=== PATIENT | male | born 1945 | race Caucasian/White ===

== ENCOUNTER 2016-03-27 11:52 | Emergency (ER) | payer MEDICARE ==
[2016-03-27 13:13] LABS: BASOPHILS 0.4 % (0.0-2.0); EOSINOPHILS 4.7 % (0-7); HEMATOCRIT 43.5 % (42.0-54.0); HEMOGLOBIN 15.2 g/dL (13.5-17.5); IMMATURE GRANULOCYTES 1.1 % (0-5); LYMPHOCYTES 24.4 % (15-50); MCHC 34.9 g/dL (31.0-37.0); MCV 88.6 fL (80.0-100.0); MEAN PLATELET VOLUME 9.5 fL (7.4-10.4); MONOCYTES 5.7 % (2-11); NEUTROPHILS 63.7 % (40-80); RBC 4.91 10x6/uL (4.20-6.10); RDW 13.5 % (11.5-14.5); WBC 13.6 10x3/uL (4.8-10.8)
[2016-03-27 13:30] LABS: PLATELET COUNT 100 10x3/uL (130-400)
[2016-03-27 13:33] LABS: ALBUMIN 3.6 g/dL (3.4-5.0); ALKALINE PHOSPHATASE 92 U/L (46-116); ALT (SGPT) 30 U/L (10-68); BILIRUBIN - TOTAL 0.25 mg/dL (0.2-1.3); CALC OSMOLALITY 271 mosm/kg (275-300); CALCIUM 9.6 mg/dL (8.5-10.1); CARBON DIOXIDE 27.4 mmol/L (21.0-32.0); CHLORIDE - SERUM 101 mmol/L (98-107); GLUCOSE 100 mg/dL (74-106); POTASSIUM - SERUM 4.4 mmol/L (3.5-5.1); PROTEIN - SERUM 6.9 g/dL (6.4-8.2); SODIUM 135 mmol/L (136-145); UREA NITROGEN 17 mg/dL (7-18); eGFR NON AFRICAN AMERICAN 78 mL/min (90-120)
[2016-03-27 15:40] LABS: ERYTHROCYTE SEDIMENTATION RATE 2 mm/hr (0-20)
[2016-04-05 12:29] VITALS: BMI 32.8
== END 2016-03-27 14:00 | disposition home or self-care (01) ==
LOC: D.ER 11:52
PROVIDERS: Physician Assistant Medical
DX: H54.61 Unqualified visual loss, right eye, normal vision left eye (principal); I10 Essential (primary) hypertension; J44.9 Chronic obstructive pulmonary disease, unspecified; F17.200 Nicotine dependence, unspecified, uncomplicated

== ENCOUNTER 2016-03-31 10:53 | Emergency (ER) | payer MEDICARE ==
[2016-03-31] MEDS ORDERED: ALTACE10 MG PO (23:41)
[2016-03-31] MEDS ORDERED: LISINOPRIL-HCTZ1 TA2 PO (23:42)
[2016-03-31] MEDS ORDERED: LIPITOR40 MG PO (23:42)
[2016-03-31] MEDS ORDERED: CHILDREN'S ASPI81 MG PO (23:43)
[2016-04-05 12:29] VITALS: BMI 32.8
== END 2016-03-31 12:25 | disposition home or self-care (01) ==
LOC: D.ER 10:53
DX: R42 Dizziness and giddiness (principal); Z98.890 Other specified postprocedural states; R09.89 Other specified symptoms and signs involving the circulatory and respiratory systems; J44.9 Chronic obstructive pulmonary disease, unspecified; I10 Essential (primary) hypertension; H54.61 Unqualified visual loss, right eye, normal vision left eye; F17.200 Nicotine dependence, unspecified, uncomplicated

== ENCOUNTER 2016-03-31 17:01 | Inpatient (IN) | payer MEDICARE ==
[~2016-03-31] VITALS: Ht 182.9 cm; Wt 108.7 kg
[2016-03-31] MEDS ORDERED: ALTACE10 MG PO (23:41)
[2016-03-31] MEDS ORDERED: LIPITOR40 MG PO (23:42)
[2016-03-31] MEDS ORDERED: LISINOPRIL-HCTZ1 TA2 PO (23:42)
[2016-03-31] MEDS ORDERED: CHILDREN'S ASPI81 MG PO (23:43)
[2016-04-01] VITALS (7 sets, daily range): BP systolic 137–172; BP diastolic 38–84; BMI 31.2
--- NOTE | 2016-04-01 07:25 | NUR ---
PATIENT LAYING ON HIS RIGHT SIDE. HOME BIPAP ON. PATIENT DOES NOT APPEAR TO BE IN DISTRESS AT THIS TIME. BED IN LOWEST POSITION, CALL LIGHT IN REACH. BED RAILS UP X'S 2.
--- NOTE | 2016-04-01 07:30 | NUR ---
SPOKE WITH PATIENT'S SHE STATED "ON MAR 27, LAST MONDAY, HE LOST HIS VISION IN HIS RIGHT EYE. THE WEEK BEFORE THAT THE VISION IN HIS RIGHT EYE WAS HALF WAY GONE BUT CLEARED UP WITHIN MINUTES. WE MOVED HERE FROM [place] 2 YEARS AGO AND HE HAS HAD FREQUENT SINUS INFECTIONS SINCE, THE PAST 2 WEEKS IT HAS BEEN REALLY BAD. BUT NO HEADACHES. YESTERDAY HE STARTED FEELING LIGHT HEADED AND NAUSEOUS. WE WENT TO THE ER THEY TOLD US TO GO TO THE CLINIC TO GET AN ULTRASOUND OF HIS CAROTIDS. WE WENT TO THE CLINIC, THEY DID THE ULTRASOUND THEY SAID THE MACHINE MAXES OUT AT 500, AND ULTRASOUND ON THE RIGHT CAROTID MAXED OUT THE MACHINE. THE LEFT SIDE WAS 350/500. 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 HE ALSO HAS SLEEP APNEA AND WEARS A BIPAP AT NIGHT."
--- NOTE | 2016-04-01 11:37 | NUR ---
PATIENT GOING FOR CTA. 22G IV. TRIED TO START IV TO RIGHT FOREARM 20 X'S 1 ATTEMPT, UNSUCCESSFUL. ASKED ANOTHER NURSE.
--- NOTE | 2016-04-01 11:45 | NUR ---
ELFEGO MACKENZIE STARTED IV TO LEFT FOREARM 20G X'S 1 ATTEMPT.
[2016-04-01 14:09] LABS: ANION GAP 14.7 mmol/L (8-16); CALCIUM 9.5 mg/dL (8.5-10.1); CARBON DIOXIDE 26.5 mmol/L (21.0-32.0); CREATININE - SERUM 1.1 mg/dL (0.6-1.3); POTASSIUM - SERUM 4.2 mmol/L (3.5-5.1)
[2016-04-01 14:42] LABS: BASOPHILS 0.3 % (0.0-2.0); EOSINOPHILS 3.7 % (0-7); HEMATOCRIT 46.9 % (42.0-54.0); HEMOGLOBIN 15.6 g/dL (13.5-17.5); IMMATURE GRANULOCYTES 0.8 % (0-5); LYMPHOCYTES 20.1 % (15-50); MCH 29.9 pg (26.0-34.0); MCHC 33.3 g/dL (31.0-37.0); MEAN PLATELET VOLUME 9.2 fL (7.4-10.4); MONOCYTES 5.9 % (2-11); NEUTROPHILS 69.2 % (40-80); RBC 5.21 10x6/uL (4.20-6.10); RDW 13.9 % (11.5-14.5); WBC 15.8 10x3/uL (4.8-10.8)
[2016-04-01 14:44] LABS: PLATELET COUNT 232 10x3/uL (130-400)
[2016-04-01 14:46] LABS: APTT 31.8 SECONDS (22.8-39.4)
[2016-04-01 14:52] LABS: ALBUMIN 3.5 g/dL (3.4-5.0); BILIRUBIN - TOTAL 0.36 mg/dL (0.2-1.3); PROTEIN - SERUM 6.7 g/dL (6.4-8.2)
[2016-04-01 16:14] LABS: APPEARANCE CLEAR (CLEAR); COLOR YELLOW (YELLOW)
[2016-04-01 16:15] LABS: BILIRUBIN NEGATIVE (NEGATIVE); GLUCOSE NEGATIVE (NEGATIVE); KETONE NEGATIVE (NEGATIVE); LEUKOCYTE ESTERASE NEGATIVE (NEGATIVE); NITRITE NEGATIVE (NEGATIVE); PROTEIN NEGATIVE (NEGATIVE); UROBILINOGEN NORMAL (NORMAL)
--- NOTE | 2016-04-01 17:18 | NUR ---
PATIENT BACK FROM PULMONARY FUNCTION TESTS.
[2016-04-02] VITALS: BP 134/68
--- NOTE | 2016-04-02 03:37 | NUR ---
PT IS ASLEEP WITH EASY RESPIRATIONS AND NO DISTRESS NOTED. THE BED IS LOW, RAILS UP X'S 2 WITH THE CALL LIGHT AT HAND.
[2016-04-02 04:00] VITALS: BP 139/54
--- NOTE | 2016-04-02 07:00 | NUR ---
PT REC'D FROM ELFEGO ACEVEDO. RESTING IN BED ON LT SIDE WITH CPAP ON AND EYES CLOSED. RESP EVEN AND UNLABORED. BED LOW, CALL LIGHT IN REACH, WILL CPOC.
[2016-04-02 08:10] VITALS: BP 133/59
--- NOTE | 2016-04-02 09:55 | NUR ---
MORNING MEDS PASSED. PT HAS VISITOR IN ROOM AT THIS TIME. UPDATED ON PLAN AND VITAL SIGNS. NO COMPLAINTS OF PAIN. NO NEUROLOGICAL DEFICITS NOTED. PT STATES VISION IS CLEAR AND DOESNT HAVE ANY PROBLEMS FOCUSING. PERRLA. BED LOW, CALL LIGHT IN REACH, WILL CPOC.
[2016-04-02 12:00] VITALS: BP 100/69
--- NOTE | 2016-04-02 13:06 | NUR ---
AWAKE AND ALERT. UP IN CHAIR AT BEDSIDE. NO C/O AT THIS TIME. DENIES PAIN. NO NEEDS NOTED. REPORTS LEFT CAROTIDENDARECTOMY ON MONDAY.
--- NOTE | 2016-04-02 15:29 | NUR ---
SCHEDULED LOVENOX ADMINISTERED AT THIS TIME TO RLQ. BETTY SPARROW, IN ROOM TAKING VS. PT RESTING IN BED WITH CPAP ON. NO COMPLAINTS OF PAIN. BED LOW, CALL LIGHT IN REACH, WILL CPOC.
[2016-04-02 15:37] VITALS: BP 144/63
--- NOTE | 2016-04-02 19:20 | NUR ---
PT UP IN CHAIR, ASSESSMENT COMPLETED, DENIES PAIN OR NEEDS, NO DISTRESS NOTED, CL IN REACH, WILL MONITOR
[2016-04-02 20:43] VITALS: BP 170/72
--- NOTE | 2016-04-02 20:46 | NUR ---
MEDS GIVEN PER MAR, ROXANNE WELL, DENIES NEEDS, CL IN REACH
--- NOTE | 2016-04-02 23:09 | NUR ---
RESTING WITH EYES CLOSED, CPAP IN PLACE, NO DISTRESS NOTED, CL IN REACH
--- NOTE | 2016-04-03 01:49 | NUR ---
LOVENOX GIVEN PER MAR, ROXANNE WELL, DENIES NEEDS, CL IN REACH
--- NOTE | 2016-04-03 05:29 | NUR ---
FLUIDS HUNG PER MAR, DENIES PAIN OR NEEDS, CL IN REACH
--- NOTE | 2016-04-03 07:00 | NUR ---
PT REC'D FROM ELFEGO DEUTSCH. RESTING IN BED WITH CPAP ON. RESP EVEN AND UNLABORED. NO SIGNS OF DISTRESS. BED LOW, CALL LIGHT IN REACH, WILL CPOC.
[2016-04-03 08:04] VITALS: BP 138/49
--- NOTE | 2016-04-03 09:35 | NUR ---
MORNING MEDS PASSED AT THIS TIME. EXPLAINED TO PT WHY HE HAD BEEN PUT ON MUCINEX THE NEW NOSE SPRAY. PT HAS NO QUESTIONS OR CONCERNS AT THIS TIME. BED LOW, CALL LIGHT IN REACH, WILL CPOC.
[2016-04-03 11:56] VITALS: BP 148/64
--- NOTE | 2016-04-03 12:40 | NUR ---
PATIENT SITTING UP ON SIDE OF BED ALERT. NO SIGNS OF DISTRESS NOTED. CALL LIGHT IN REACH. BED IN LOW POSITION.
--- NOTE | 2016-04-03 13:35 | NUR ---
SPOKE WITH PT AND PT ABOUT DR. VELOZ'S ORDERS FOR SURGERY TOMORROW. IV TO L FOREARM DC'D WITH CATHETER INTACT. DRESSING APPLIED. INSTRUCTED PT ON HOW TO USE ICENTIVE SPIROMETER AND HOW OFTEN TO. PT ABLE TO RETURN DEMONSTRATION 5 TIMES. BED LOW, CALL LIGHT IN REACH, WILL CPOC.
[2016-04-03 15:59] VITALS: BP 161/60
--- NOTE | 2016-04-03 18:48 | NUR ---
PT UNHOOKED FROM IV TUBING TO TAKE A SHOWER. IV SITE COVERED WITH GLOVE AND SECURED WITH TAPE.
[2016-04-03 19:00] VITALS: BP 155/57
--- NOTE | 2016-04-03 19:25 | NUR ---
ASSESSMENT COMPLETED, NO ACUTE DISTRESS NOTED, DENIES PAIN OR NEEDS, SR'S UP X2, CL IN REACH, WILL MONITOR
--- NOTE | 2016-04-03 21:08 | NUR ---
MEDS GIVEN PER MAR, ROXANNE WELL, DENIES NEED, SR'S UP, CL IN REACH
[2016-04-04] VITALS (17 sets, daily range): BP systolic 126–143; BP diastolic 43–58
--- NOTE | 2016-04-04 01:33 | NUR ---
RESTING WITH EYES CLOSED, NO DISTRESS NOTED, CL IN REACH
[2016-04-04 05:24] LABS: HEMATOCRIT 43.2 % (42.0-54.0); HEMOGLOBIN 14.5 g/dL (13.5-17.5); MCH 29.7 pg (26.0-34.0); MCHC 33.6 g/dL (31.0-37.0); MCV 88.3 fL (80.0-100.0); PLATELET COUNT 227 10x3/uL (130-400); RBC 4.89 10x6/uL (4.20-6.10); RDW 13.7 % (11.5-14.5); WBC 23.5 10x3/uL (4.8-10.8)
[2016-04-04 05:40] LABS: APTT 30.9 SECONDS (22.8-39.4); INR 1.03 (0.85-1.17); PROTIME 13.3 SECONDS (11.6-15.0)
[2016-04-04 05:45] LABS: EOSINOPHILS 1 % (0-7); LYMPHOCYTES 8 % (15-50); MONOCYTES 5 % (2-11); NEUTROPHILS 83 % (40-80); PLATELET ESTIMATE NORMAL
[2016-04-04 05:58] LABS: ALBUMIN 3.3 g/dL (3.4-5.0); ANION GAP 15.3 mmol/L (8-16); BILIRUBIN - TOTAL 0.28 mg/dL (0.2-1.3); CARBON DIOXIDE 23.8 mmol/L (21.0-32.0); CREATININE - SERUM 1.1 mg/dL (0.6-1.3); MAGNESIUM - SERUM 2.2 mg/dL (1.8-2.4); PHOSPHOROUS 2.7 mg/dL (2.5-4.9); POTASSIUM - SERUM 5.1 mmol/L (3.5-5.1); PROTEIN - SERUM 6.4 g/dL (6.4-8.2)
--- NOTE | 2016-04-04 08:00 | NUR ---
PT AWAKE AND ALERT NO ACUTE DISTRESS NOTED HIBICLENSE BATH GIVEN PER STAFF ASSIST EARLIER. NPO FOR OR WITH DR VELOZ THIS AM.
--- NOTE | 2016-04-04 09:00 | NUR ---
WITHOUT DISTRESS.NPO FOR SURGERY.CALL LIGHT IN REACH
--- NOTE | 2016-04-04 11:33 | NUR ---
TO OR VIA BED FOR CAROTID ENDARTERECTMY PER DR VELOZ. WAS PREOPPED PER ORDER PRIOR TO [facility]ORT HAS BEEN NPO SINCE MIDNIGHT. FAMILY AT SIDE.
--- NOTE | 2016-04-04 16:27 | NUR ---
RECIEVED PT TO ROOM FROM OR. ATTACHED TO ICU MONITORS. ASSESSMENT COMPLETE PER FLOWSHEET. WILL ASSESS FOR CHANGES THROUGHOUT SHIFT.
--- NOTE | 2016-04-04 18:00 | NUR ---
AT BEDSIDE. UPDATE PROVIDED.
--- NOTE | 2016-04-04 19:10 | NUR ---
ASSESSMENT COMPLETED. ALERT AND ORIENTED. O2 @ 4L VIA NC, MICHELL LUNGS DIMINISHED IN THE BASES. LT DLSC, DRSG C-D-I WITH IVF PER FLOW SHEET. RT NECK DRSG C-D-I, RT CHEST ANTONINA DRAIN WITH BLOODY DRAINAGE IN BAG AND BULB DEPRESSED. RT RADIAL A-LINE, ZEROED AND CALIBRATED WITH GOOD WAVE FORM. CRITICORE THOMPSON INTACT. MICHELL ALFA/SCD INTACT. PPP. SR ON THE MONITOR. DENIES ANY PAIN OR NEEDS AT THIS TIME.
--- NOTE | 2016-04-04 21:00 | NUR ---
AT BESIDE. UPDATE GIVEN. WILL CONT TO MONITOR. PULLING 3000 ON I/S.
--- NOTE | 2016-04-04 23:00 | NUR ---
REASSESSMENT COMPLETED. DENIES ANY NEEDS AT THIS TIME. PLACED ON HOME CPAP. WILL CONT TO MONITOR.
[2016-04-05] VITALS (24 sets, daily range): BP systolic 105–138; BP diastolic 48–87; Ht 182.9 cm; Wt 108.7 kg
--- NOTE | 2016-04-05 01:00 | NUR ---
EYES CLOSED, RESP EVEN AND UNLABORED. SR ON THE MONITOR.
--- NOTE | 2016-04-05 03:00 | NUR ---
EASILY AROUSED BY VERBAL STIMULI. DENIES ANY NEEDS AT THIS TIME. SR ON THE MONITOR.
--- NOTE | 2016-04-05 05:11 | NUR ---
NO CHANGES AT THIS TIME. WILL CONT TO MONITOR.
[2016-04-05 06:35] LABS: BASOPHILS 0.1 % (0.0-2.0); EOSINOPHILS 0 % (0-7); HEMATOCRIT 41.4 % (42.0-54.0); HEMOGLOBIN 13.8 g/dL (13.5-17.5); IMMATURE GRANULOCYTES 0.9 % (0-5); LYMPHOCYTES 9.9 % (15-50); MCHC 33.3 g/dL (31.0-37.0); MEAN PLATELET VOLUME 9.3 fL (7.4-10.4); MONOCYTES 9.9 % (2-11); NEUTROPHILS 79.2 % (40-80); PLATELET COUNT 253 10x3/uL (130-400); RDW 14.1 % (11.5-14.5); WBC 23.6 10x3/uL (4.8-10.8)
[2016-04-05 06:53] LABS: ANION GAP 16.9 mmol/L (8-16); CALCIUM 7.6 mg/dL (8.5-10.1); CARBON DIOXIDE 21.2 mmol/L (21.0-32.0); CREATININE - SERUM 1.2 mg/dL (0.6-1.3)
[2016-04-05 06:55] LABS: POTASSIUM - SERUM 4.1 mmol/L (3.5-5.1)
--- NOTE | 2016-04-05 07:00 | NUR ---
ASSESSMENT PER FLOWSHEET. VOICES NO CO AT TIME. ON CPAP.
[2016-04-05 09:18] LABS: IMMUNOGLOBULIN E 203 IU/mL (0-100)
--- NOTE | 2016-04-05 10:00 | NUR ---
DONNA WU. VOICES NO CO AT TIME.
--- NOTE | 2016-04-05 13:00 | NUR ---
UP IN CHAIR NO CO AT TIME. O2 SAT 97 PERCENT.
--- NOTE | 2016-04-05 13:00 | NUR ---
LINES SL. UP AMBULATING WITH PHYSICAL THERAPY. WALKED 700FT.
--- NOTE | 2016-04-05 13:54 | NUR ---
Is the patient Alert and Oriented? Yes 0 * How many steps to enter\exit or inside your home? 1 0 * PCP DR. NICHOLS 0 * Pharmacy [facility] IN [facility] 0 * Preadmission Environment Home with Family 0 * ADLs Independent 0 * Equipment CPAP 0 * Other Equipment CPAP PROVIDED BY [facility] [employer] 0 * List name and contact numbers for known caregivers / representatives who currently or will assist patient after discharge: SPOUSE: GENESIS [phone] * Community resources currently utilized None 0 * Additional services required to return to the preadmission environment? No 0 * Can the patient safely return to the preadmission environment? Yes 0 * Has this patient been hospitalized within the prior 30 days at any hospital? No PATIENT STATES HE LIVES AT HOME WITH HIS , GENESIS. SHE STATES THAT HIS PCP IS DR. NICHOLS. HE GETS HIS MEDSFROM [facility] AT THE [facility]. HE HAS CPAP THAT IS PROVIDED BY [employer]. HE DENIES EVER HAVING HOME HEALTH. PATIENT STATES THERE IS 1 STEP TO ENTER HIS HOME. PATIENT'S WILL BE AVAILABLE TO DRIVE HIM HOME AT DISCHARGE. NO DISCHARGE NEEDS IDENTIFIED.
--- NOTE | 2016-04-05 15:00 | NUR ---
SITTING UP IN CHAIR VOICES NO CO AT TIME.
--- NOTE | 2016-04-05 17:00 | NUR ---
EATING SUPPER VOICES NO CO AT TIME.
--- NOTE | 2016-04-05 19:10 | NUR ---
ASSESSMENT COMPLETED. SEE FLOW SHEET. LT DLSC SL, DRSG C-D-I, RT NECK DRSG C-D-I. RT CHEST ANTONINA DRAIN WITH BULB DEPRESSED. MICHELL ALFA/SCD INTACT. SR ON THE MONITOR. DENIES ANY PAIN OR NEEDS AT THIS TIME. I/S = 3000.
--- NOTE | 2016-04-05 21:00 | NUR ---
NO VISITOR'S AT THIS TIME. WILL CONT TO MONITOR.
--- NOTE | 2016-04-05 23:00 | NUR ---
REASSESSMENT COMPLETED. HOME CPAP IN USE. SR ON THE MONITOR.
[2016-04-06] VITALS (15 sets, daily range): BP systolic 121–158; BP diastolic 58–74
--- NOTE | 2016-04-06 01:00 | NUR ---
EYES CLOSED, RESP EVEN AND UNLABORED. SR ON THE MONITOR.
--- NOTE | 2016-04-06 03:00 | NUR ---
REASSESSMENT COMPLETED. WILL CONT TO MONITOR.
--- NOTE | 2016-04-06 05:00 | NUR ---
NO CHANGES AT THIS TIME. SR ON THE MONITOR.
[2016-04-06 05:34] LABS: BASOPHILS 0.2 % (0.0-2.0); EOSINOPHILS 0.2 % (0-7); HEMATOCRIT 40.6 % (42.0-54.0); HEMOGLOBIN 13.2 g/dL (13.5-17.5); IMMATURE GRANULOCYTES 0.7 % (0-5); LYMPHOCYTES 15.5 % (15-50); MCH 29.1 pg (26.0-34.0); MCHC 32.5 g/dL (31.0-37.0); MCV 89.6 fL (80.0-100.0); MEAN PLATELET VOLUME 8.9 fL (7.4-10.4); MONOCYTES 11.7 % (2-11); NEUTROPHILS 71.7 % (40-80); PLATELET COUNT 181 10x3/uL (130-400); RBC 4.53 10x6/uL (4.20-6.10); RDW 14.4 % (11.5-14.5); WBC 16.1 10x3/uL (4.8-10.8)
[2016-04-06 05:41] LABS: ANION GAP 9.9 mmol/L (8-16); CALCIUM 8.4 mg/dL (8.5-10.1); CREATININE - SERUM 1.1 mg/dL (0.6-1.3); POTASSIUM - SERUM 4.1 mmol/L (3.5-5.1)
[2016-04-06 05:43] LABS: CARBON DIOXIDE 28.2 mmol/L (21.0-32.0)
[2016-04-06] MEDS ORDERED: PLAVIX75 MG PO (10:29)
[2016-04-06] MEDS ORDERED: ALTACE5 MG PO (10:30)
[2016-04-06] MEDS ORDERED: ASPIRIN81 MG PO (10:31)
[2016-04-06] MEDS ORDERED: LASIX20 MG PO (10:33)
[2016-04-06] MEDS ORDERED: IPRAT-ALBUT 0.5-3 ML UPD (10:49)
[2016-04-06] MEDS ORDERED: SYMBICORT 16010.2 GM INH (10:49)
[2016-04-06] MEDS ORDERED: PROVENTIL HFA6.7 GM INH (10:50)
--- NOTE | 2016-04-06 12:53 | NUR ---
PATIENT IS BEING D/C HOME TODAY. HE HAS ORDER FOR NEBULIZER FOR DUONEBS AT HOME. PATIENT GETS HIS HOME CPAP FROM [facility] AND REQUEST WE SEND ORDER FOR NEBULIZER THERE. I HAVE FAXED THE ORDER, FS, AND PULMONARY PROGRESS NOTE TO [facility]. [phone]. I HAVE LET THEM KNOW THAT PATIENT WILL CALL WHEN HE ARRIVES HOME FOR DELIVERY OF NEBULIZER AND THAT IT WILL BE AFTER 3PM TODAY.
--- NOTE | 2016-04-06 15:03 | NUR ---
DC INSTRUCTIONS GIVEN TO PT PER SANJUANA SOUZA RN. FU VISIT WITH DR WHITE [id number]. DOUBLE LUMEN DCD.
--- NOTE | 2016-04-06 16:00 | NUR ---
DC INSTRUCTIONS GIVEN TO AND PATIENT. NO QUESTIONS NOTED. LEFT WITH VIA PRIVATE AUTO.
--- NOTE | 2016-04-09 12:20 | OP ---
PATIENT NAME: NATANAEL SANDOVAL MEDICAL RECORD: [id number] :41 LOCATION:[facility] [id number] ADMISSION DATE:04/03/16 SURGEON: MAGNO VELOZ MD DATE OF OPERATION: 04/04/2016 SURGEON: Magno Veloz MD ANESTHESIA: General endotracheal, Dr. Bhatt. OPERATION PERFORMED: Right carotid endarterectomy with patch angioplasty. PREOPERATIVE DIAGNOSES: Severe right internal carotid artery stenosis, central right artery occlusion. POSTOPERATIVE DIAGNOSES: Severe right internal carotid artery stenosis, central right artery occlusion. INDICATION FOR OPERATION: Symptomatic severe carotid stenosis. FINDINGS AT OPERATION: Severe right internal carotid artery stenosis, internal dimension was less than 5% with a stenotic area of 95+ %. ESTIMATED BLOOD LOSS: Less than 100 cc. FINDINGS OF THE OPERATION: There were no EEG changes with clamping or unclamping of the carotid artery. DESCRIPTION OF PROCEDURE: After informed consent, adequate preoperative medication evaluation, the patient was brought to the operating room, placed on the table in the supine position. After induction of general endotracheal anesthesia and application of appropriate monitoring devices, the right neck was prepped and draped in a sterile field, utilizing Betadine scrub, alcohol, and Betadine solution. A Betadine-impregnated drape was also used. A transverse incision was made in the right neck and dissection carried down the fascia. The platysma was divided. Hemostasis maintained with electrocautery. The sternocleidomastoid was identified. Utilizing sharp dissection, the common carotid, internal and external carotid arteries were dissected free from surrounding structures, protecting the neurological structures. The patient was given a calculated dose of heparin, after 3 minutes, clamps were applied. After 2 minutes, no EEG changes. The arteriotomy was made and extended with Alicea scissors. Artery underwent endarterectomy sharply. Artery underwent extensive debridement and irrigation. Utilizing a vascular patch and running 7-0 Prolene suture, the arteriotomy was closed with a patch angioplasty technique. All maneuvers to remove trapped air were performed. The clamps were removed sequentially. There were no EEG changes. The patient was given a calculated dose of protamine to reverse the heparin. Hemostasis was achieved, and a #7 Cliff-Parker drain was left in the depth of wound and brought through the base of the neck. Neck was again irrigated. Instrument count and sponge count were correct times 2. Neck was closed in layers utilizing 3-0 Vicryl on the platysma and 5-0 subcuticular Monocryl on the skin. Sterile dressings were applied. The patient tolerated the procedure well and transferred to the ICU in stable condition. TRANSINT:[id number] Voice Confirmation ID: [id number] DOCUMENT ID: [id number] OPERATIVE REPORT [id number] NATANAEL SANDOVAL EDWARD MD at 1220 CC: [id number] DICTATION DATE: 04/04/16 1615 BIG DATA DEVELOPER: 04/04/16 1841 DIS IN 04/06/16 [facility] [address] [place] [address]
--- NOTE | 2016-04-30 13:50 | DS ---
PATIENT:NATANAEL SANDOVAL :41 MEDICAL RECORD: [id number] DISCHARGE SUMMARY ADMISSION DATE: 04/03/16 DISCHARGE DATE: 04/06/16 DISCHARGE DIAGNOSES: 1. Severe bilateral carotid artery stenosis. 2. Right central retinal artery occlusion. 3. Nicotine dependence. 4. Blindness, right eye. 5. Obstructive sleep apnea. 6. Chronic obstructive pulmonary disease. 7. Peripheral vascular disease. 8. Essential hypertension. 9. Hyperlipidemia. 10. Allergic rhinitis. DISCHARGE MEDICATIONS: Please see medical reconciliation form. DISPOSITION: The patient discharged home. Has appointment to see Dr. Gonzalez in 2-3 weeks and appointment to see Dr. Gaines to be arranged. HOSPITAL COURSE: The patient admitted to the hospital by Dr. Gaines for right central retinal artery occlusion and abnormal Doppler study. He underwent workup including a CT angiogram that revealed severe bilateral carotid artery stenosis. His right is more severe than the left. Due to the unstable nature of his plaque and embolic disease from the carotid, we felt that he would benefit from right carotid endarterectomy before discharge, he was worked up by pulmonary medicine and felt to be a satisfactory candidate. He underwent right carotid endarterectomy and postoperatively did well, had no problems with bleeding, infection or arrhythmias. On his second postoperative day, his neck is healing well as blood pressure was under control. He has been given discharge instructions and wound precautions and will be seen as above. TRANSINT:[id number] Voice Confirmation ID: [id number] DOCUMENT ID: [id number] MAGNO GONZALEZ MD at 1350 CC: [id number] DICTATION DATE: 04/16/16 1258 MANAGER SOCIAL SERVICES: 04/16/16 2310 DIS IN 04/06/16 [facility] [id number] [place] [address]
== END 2016-04-06 16:22 | disposition home or self-care (01) | DRG 38 ==
LOC: D.ER 17:01 → OBSVTIME 17:58 → D.MS 17:58 → D.ICU 04-03 15:19
PROVIDERS: Internal Medicine Cardiovascular Disease; Internal Medicine Pulmonary Disease; ADMIT Family Medicine Adult Medicine
PROC: 03UK0KZ Supplement Right Internal Carotid Artery with Nonautologous Tissue Substitute, Open Approach (ICD-10-PCS; 2016-04-04)
PROC: 03CK0ZZ Extirpation of Matter from Right Internal Carotid Artery, Open Approach (ICD-10-PCS; principal; 2016-04-04 12:00)
DX: I65.23 Occlusion and stenosis of bilateral carotid arteries (principal); F17.203 Nicotine dependence unspecified, with withdrawal; H34.11 Central retinal artery occlusion, right eye; H54.41 Blindness, right eye, normal vision left eye; G47.33 Obstructive sleep apnea (adult) (pediatric); J44.9 Chronic obstructive pulmonary disease, unspecified; I73.9 Peripheral vascular disease, unspecified; I10 Essential (primary) hypertension; E78.5 Hyperlipidemia, unspecified; J30.9 Allergic rhinitis, unspecified

== ENCOUNTER → 2016-06-13 14:28 | Outpatient (CLI) | payer MEDICARE ==
[2016-04-05 12:29] VITALS: BMI 32.8
[~2016-06-13 14:28] MED LIST: ALTACE10 MG PO; ALTACE5 MG PO; ASPIRIN81 MG PO; CHILDREN'S ASPI81 MG PO; IPRAT-ALBUT 0.5-3 ML UPD; LASIX20 MG PO; LIPITOR40 MG PO; LISINOPRIL-HCTZ1 TA2 PO; PLAVIX75 MG PO; PROVENTIL HFA6.7 GM INH; SYMBICORT 16010.2 GM INH
== END | disposition home or self-care (01) ==
LOC: D.US 14:28
DX: I65.23 Occlusion and stenosis of bilateral carotid arteries (principal)

== ENCOUNTER → 2016-11-15 19:32 | Outpatient (CLI) | payer MEDICARE ==
[2016-04-05 12:29] VITALS: BMI 32.8
== END | disposition home or self-care (01) ==
LOC: D.SLEEP 08:00
DX: G47.33 Obstructive sleep apnea (adult) (pediatric) (principal)